=== PATIENT | female | born 1960 | race Caucasian/White ===

== ENCOUNTER 2017-01-20 01:52 | Emergency (ER) | payer OTHER ==
[~2017-01-20] VITALS: Wt 73.1 kg
[2017-01-20] MEDS ORDERED: BEN50 PO (04:02)
[2017-01-20] MEDS ORDERED: PRED20TA PO (04:02)
--- NOTE | 2017-01-20 04:07 | ERD ---
ER Documentation Chief Complaint Date/Time DATE: 01/20/17 TIME: 04:06 Chief Complaint itching on face/scalp/neck x 1 week HPI This is a 56-year-old female with history of hypertension presenting to the emergency department complaining of itchiness and rash on scalp and posterior neck for 1 week status post using a new shampoo. Patient denies any fevers. She denies taking any medications for this. She states that she feels is getting worse. ROS All systems reviewed and are negative except as per history of present illness. Medications Home Meds Active Scripts Diphenhydramine Hcl* (Benadryl*) 50 Mg Cap, 50 MG PO Q6H Y for ITCHING/RASH, # 30 CAP Prov:DEVON ORNELAS PA-C 01/20/17 Prednisone* (Prednisone*) 20 Mg Tab, 40 MG PO DAILY for 5 Days, TAB Prov:DEVON ORNELAS PA-C 01/20/17 Allergies Allergies: Coded Allergies: No Known Allergy (Unverified , 01/20/17) PMhx/Soc Hx Alcohol Use: No Hx Substance Use: No Hx Tobacco Use: No Physical Exam Vitals Vital Signs Date Time Temp Pulse Resp B/P Pulse Ox O2 Delivery O2 Flow Rate FiO2 01/20/17 01:56 97.6 88 20 149/68 99 Physical Exam General: WD/WN, in no apparent distress, non-toxic appearing HENT: NC/AT Eyes: Conjunctiva normal Neck: Supple Pulm: Clear to auscultation, normal labored breathing; no wheezing/rales/ rhonchi heard CV: Good capillary refill GI: Non-distended, no guarding Back: No masses Ext: No clubbing, cyanosis, or edema Neuro: Moves on all fours Skin: Erythematous papules on scalp and nape of neck, no induration Psych: Normal mood Procedures/MDM This is a 56-year-old female presenting to the emergency department complaining of a rash on the scalp and nape of the neck and face for the past week status post using a new shampoo. This is likely allergic reaction. I have a low suspicion for cellulitis, anaphylaxis. Patient's breathing well on room air airways are intact. Patient was driving therefore prescription for Benadryl and prednisone for the next 5 days was given for home. I discussed to discontinue the shampoo and follow-up with your primary care physician. Discussed return to the ER for any worsening signs no. Patient stable for discharge Departure Diagnosis: Primary Impression: Allergic dermatitis Condition: Stable Patient Instructions: Contact Dermatitis, Dermatitis, Non-Specific Additional Instructions: Visite a [facility] ramu pedraza para un EXAMEN.Regrese a estas instalaciones si no se mejora diaan esperbamos o diana le dijimos. Deans toda la medicina emre y diana se le indic. Regrese a estas instalaciones si no se mejora diana esperbamos o diana le dijimos. DEVON ORNELAS PA-C Jan 20, 2017 04:07
== END 2017-01-20 04:31 | disposition home or self-care (01) ==
LOC: FTE 01:52
DX: L23.89 Allergic contact dermatitis due to other agents (principal); I10 Essential (primary) hypertension
CPT/HCPCS: 99283

== ENCOUNTER 2017-07-10 19:59 | Emergency (ER) | payer OTHER ==
[~2017-07-10] VITALS: Ht 165.1 cm; Wt 73.0 kg
[~2017-07-10 19:59] MED LIST: BEN50 PO; PRED20TA PO
[2017-07-10 20:53] VITALS: Ht 165.1 cm; Wt 73.0 kg
[2017-07-10] MEDS ORDERED: morphine 4 MG/ML VIAL IV STA (22:27)
[2017-07-10] MEDS ORDERED: ONDANSETRON 4 MG INJ IV STA (22:27)
[2017-07-10 23:27] LABS: BASOPHILS % 0.5 % (0.0-2.0); EOSINOPHILS # 0.1 10^3/ul (0.0-0.5); EOSINOPHILS % 1.1 % (0.0-7.0); HEMATOCRIT 44.1 % (37.0-47.0); HEMOGLOBIN 14.1 g/dl (12.0-16.0); LYMPHOCYTES # 2.6 10^3/ul (0.8-2.9); LYMPHOCYTES % 35.3 % (15.0-51.0); MEAN CORPUSCULAR HEMOGLOBIN 29.7 pg (29.0-33.0); MEAN CORPUSCULAR VOLUME 92.8 fl (82.0-101.0); MEAN PLATELET VOLUME 10.4 fl (7.4-10.4); MONOCYTE # 0.6 10^3/ul (0.3-0.9); NEUTROPHILS % 54.8 % (39.0-77.0); PLATELET COUNT 328 10^3/UL (140-415); RED BLOOD COUNT 4.75 10^6/ul (4.20-5.40); RED CELL DISTRIBUTION WIDTH 14.7 % (11.5-14.5); WHITE BLOOD COUNT 7.3 10^3/ul (4.8-10.8)
--- NOTE | 2017-07-10 23:27 | RADRPT ---
PROCEDURE: XR Chest. CLINICAL INDICATION: Chest pain and headaches TECHNIQUE: AP Portable chest. COMPARISON: None available FINDINGS: The soft tissues and bones are remarkable for mild bilateral acromioclavicular osteoarthropathy. No focal infiltrates, masses, or effusions are noted. The mediastinum and heart are normal. No pneum othorax is present. IMPRESSION: 1. No radiographic evidence for acute cardiopulmonary disease RPTAT: HDC .Jeanne Umanzor MD, MD Date Time Electronically viewed and signed by .Jeanne Umanzor MD, on 07/10/2017 23:26 .C/
--- NOTE | 2017-07-10 23:35 | RADRPT ---
PROCEDURE: CT Brain without contrast. CLINICAL INDICATION: Headaches TECHNIQUE: A CT of the brain was performed on a GE [employer] 64-slice CT scanner utilizing axial imaging from the skull base through the vertex without IV contrast. Multiplanar reformatted images were made. Images were reviewed on a PACS workstation. The CTDIvol is 43.17 mGy and the DLP is 843 .66 mGycm. One of the following 3 dose reduction techniques were used: Automated exposure control; adjustment of the mA and/or kV according to patient size; or use of iterative reconstruction technique. COMPARISON: None available FINDINGS: There is no intracranial hemorrhage, mass effect, or midline shift. No extra-axial fluid collection is seen. The ventricles and sulci are normal in size and configuration. The density of the brain is normal, and the licona white matter differentiation appears well-preserved. A partially empty sella i s noted. The visualized scalp and calvarium are normal. The bilateral orbits are normal. The bilateral para nasal sinuses demonstrate chronic right maxillary sinus disease. The bilateral mastoid air cells an d middle ear cavities are clear. IMPRESSION: 1. No evidence of acute hemorrhage, infarcts, or acute intracranial pathology. 2. Chronic right maxillary sinus disease 3. Partially empty sella and correlate with potential hypopituitarism. RPTAT: HDC .Jeanne Umanzor MD, MD Date Time Electronically viewed and signed by .Jeanne Umanzor MD, MD on 07/10/2017 23:35 .C/
[2017-07-10 23:46] LABS: INR 0.88; PROTIME 11.9 Sec (12.2-14.2); PT RATIO 0.9
[2017-07-10 23:47] LABS: PARTIAL THROMBOPLASTIN TIME 29.4 Sec (25.0-35.0)
[2017-07-10 23:52] LABS: ANION GAP 21 (8-16); BLOOD UREA NITROGEN 14 mg/dl (7-20); CALCIUM 9.9 mg/dl (8.4-10.2); CARBON DIOXIDE 27 mmol/L (21-31); CHLORIDE 100 mmol/L (97-110); CREATININE 0.81 mg/dl (0.44-1.00); GLUCOSE 104 mg/dl (70-220); POTASSIUM 4.1 mmol/L (3.5-5.1); SODIUM 144 mmol/L (135-144)
[2017-07-11 00:06] LABS: TROPONIN-I < 0.012 ng/ml (0.00-0.12)
[2017-07-11] MEDS ORDERED: AMLO5TAB4 PO (01:30)
[2017-07-11] MEDS ORDERED: AMIT10TA6 PO (01:30)
[2017-07-11] MEDS ORDERED: MULTI PO (01:30)
--- NOTE | 2017-07-11 02:57 | ERD ---
ER Documentation Chief Complaint Date/Time DATE: 07/11/17 TIME: 02:56 Chief Complaint Head pressure and high blood pressure x 2 days, worse today HPI 48-year-old female comes with hypertension high blood pressure today and yesterday. She said it got worse today. No nausea no vomiting no chills. No other current complaints. Denies any focal neurological complaints. No visual acuity changes. ROS All systems reviewed and are negative except as per history of present illness. Medications Home Meds Reported Medications Amitriptyline Hcl* (Amitriptyline Hcl*) 10 Mg Tablet, 10 MG PO QHS, #30 TAB 07/11/17 Amlodipine Besylate* (Norvasc*) 5 Mg Tablet, 5 MG PO DAILY, TAB 07/11/17 Multivitamins* (Theragran*) 1 Tab Tab, 1 TAB PO DAILY, TAB 07/11/17 Discontinued Scripts Diphenhydramine Hcl* (Benadryl*) 50 Mg Cap, 50 MG PO Q6H Y for ITCHING/RASH, # 30 CAP Prov:DEVON ORNELAS PA-C 01/20/17 Prednisone* (Prednisone*) 20 Mg Tab, 40 MG PO DAILY for 5 Days, TAB Prov:DEVON ORNELAS PA-C 01/20/17 Allergies Allergies: Coded Allergies: No Known Allergy (Unverified , 07/10/17) PMhx/Soc Medical and Surgical Hx: pt denies Surgical Hx History of Surgery: Yes (carpal tunnel) Anesthesia Reaction: No Hx Neurological Disorder: No Hx Respiratory Disorders: No Hx Cardiac Disorders: Yes (htn) Hx Psychiatric Problems: No Hx Miscellaneous Medical Probl: No Hx Alcohol Use: No Hx Substance Use: No Hx Tobacco Use: No Smoking Status: Never smoker Physical Exam Vitals Vital Signs Date Time Temp Pulse Resp B/P Pulse Ox O2 Delivery O2 Flow Rate FiO2 07/10/17 20:53 98.6 80 18 141/66 97 Physical Exam Const: [] Head: Atraumatic Eyes: Normal Conjunctiva ENT: Normal External Ears, Nose and Mouth. Neck: Full range of motion..~ No meningismus. Resp: Clear to auscultation bilaterally Cardio: Regular rate and rhythm, no murmurs Abd: Soft, non tender, non distended. Normal bowel sounds Skin: No petechiae or rashes Back: No midline or flank tenderness Ext: No cyanosis, or edema Neur: Awake and alert Psych: Normal Mood and Affect Result Diagram: 07/10/170 07/10/172299 Results 24 hrs Laboratory Tests Test 07/10/17 23:00 White Blood Count 7.310^3/ul Red Blood Count 4.7510^6/ul Hemoglobin 14.1g/dl Hematocrit 44.1% Mean Corpuscular Volume 92.8fl Mean Corpuscular Hemoglobin 29.7pg Mean Corpuscular Hemoglobin Concent 32.0g/dl Red Cell Distribution Width 14.7% Platelet Count 63670^3/UL Mean Platelet Volume 10.4fl Neutrophils % 54.8% Lymphocytes % 35.3% Monocytes % 8.0% Eosinophils % 1.1% Basophils % 0.5% Nucleated Red Blood Cells % 0.0/100WBC Neutrophils # (Manual) 4.010^3/ul Lymphocytes # 2.610^3/ul Monocytes # 0.610^3/ul Eosinophils # 0.110^3/ul Basophils # 0.010^3/ul Nucleated Red Blood Cells # 0.010^3/ul Prothrombin Time 11.9Sec Prothrombin Time Ratio 0.9 INR International Normalized Ratio 0.88 Activated Partial Thromboplast Time 29.4Sec Sodium Level 144mmol/L Potassium Level 4.1mmol/L Chloride Level 100mmol/L Carbon Dioxide Level 27mmol/L Anion Gap 21 Blood Urea Nitrogen 14mg/dl Creatinine 0.81mg/dl Glucose Level 104mg/dl Calcium Level 9.9mg/dl Troponin I < 0.012ng/ml Current Medications Medications (Trade) Dose Ordered Sig/Sonya Route PRN Reason Start Time Stop Time Status Last Admin Dose Admin Ondansetron HCl (Zofran Inj) 4 mg ONCE STAT IV 07/10/17 22:27 07/10/17 22:29 DC Morphine Sulfate (morphine) 4 mg ONCE STAT IV 07/10/17 22:27 07/10/17 22:29 DC Procedures/MDM EKG: Rate/Rhythm: Normal Sinus Rhythm QRS, ST, T-waves: No changes consistent w/ acute ischemia Impression: No evidence of ischemia or arrhythmia Chest X-ray 1V Interpreted by me: Soft Tissue: No acute abnormalities Bones: No acute abnormalities Mediastinum/Cardiac Silhouette/Lungs: No acute abnormalities Patient's neurologic symptoms have stabilized while they have been evaluated in the department and are appropriate for outpatient work up. No e/o meningitis, intracranial bleed, seizure, stroke. Departure Diagnosis: Primary Impression: Hypertension Hypertension type: unspecified secondary hypertension Qualified Code: I15.9 - Secondary hypertension Condition: Stable RACHEAL ARROYO Jul 11, 2017 02:57
[2017-07-11] MEDS ORDERED: AMOX1TAB10 PO (02:59)
[2017-07-11] MEDS ORDERED: LORA10TA3 PO (02:59)
== END 2017-07-11 04:54 | disposition home or self-care (01) ==
LOC: E/R 19:59
DX: I15.9 Secondary hypertension, unspecified (principal); R51 Headache
CPT/HCPCS: 36415; 70450; 71010; 80048; 84484; 85025; 85610; 85730; 93005; Z7502

== ENCOUNTER 2018-02-22 03:44 | Emergency (ER) | END 2018-02-22 07:57 | disposition home or self-care (01) ==

== ENCOUNTER 2018-05-23 19:18 | Emergency (ER) | END 2018-05-23 21:20 | disposition home or self-care (01) ==